=== PATIENT | male | born 1980 | race Caucasian/White ===

== ENCOUNTER 2018-09-08 17:31 | Emergency (ER) | payer SELFPAY ==
[~2018-09-08] VITALS: Ht 175.3 cm; Wt 109.1 kg
[2018-09-08 17:56] VITALS: Ht 175.3 cm; Wt 109.1 kg
[2018-09-08] MEDS ORDERED: LEVAQUIN750 MG PO (19:34)
[2018-09-08] MEDS ORDERED: MEDROL DOSE PACK4 MG PO (19:34)
[2018-09-08] MEDS ORDERED: PHENERGAN DM SYR5 ML PO (19:34)
[2018-09-08] MEDS ORDERED: TAMIFLU75 MG PO (19:34)
[2018-09-08 20:38] VITALS: BP 130/76
[2018-09-15 17:08] LABS: AEROBE ID Final report (())
== END 2018-09-08 20:38 | disposition home or self-care (01) ==
LOC: D.ER 17:31
PROVIDERS: Family Medicine
DX: J06.9 Acute upper respiratory infection, unspecified (principal); Z20.89 Contact with and (suspected) exposure to other communicable diseases; J18.9 Pneumonia, unspecified organism; R09.89 Other specified symptoms and signs involving the circulatory and respiratory systems

== ENCOUNTER 2019-02-10 20:12 | Emergency (ER) | payer BC ==
[~2019-02-10] VITALS: Ht 175.3 cm; Wt 167.8 kg
[~2019-02-10 20:12] MED LIST: LEVAQUIN750 MG PO; MEDROL DOSE PACK4 MG PO; PHENERGAN DM SYR5 ML PO; TAMIFLU75 MG PO
[2019-02-10 20:25] VITALS: Ht 175.3 cm; Wt 167.8 kg
[2019-02-10 20:51] LABS: BASOPHILS 0.7 % (0-2); EOSINOPHILS 3.6 % (0-7); HEMATOCRIT 44.6 % (42.0-54.0); IMMATURE GRANULOCYTES 0.5 % (0-5); LYMPHOCYTES 45.8 % (15-50); MCH 30.2 pg (26.0-34.0); MCHC 33.6 g/dL (31.0-37.0); MCV 89.9 fL (80.0-100.0); MEAN PLATELET VOLUME 9.3 fL (7.4-10.4); MONOCYTES 5.9 % (2-11); NEUTROPHILS 43.5 % (40-80); PLATELET COUNT 201 10x3/uL (130-400); RBC 4.96 10x6/uL (4.20-6.10); RDW 13.1 % (11.5-14.5); WBC 8.5 10x3/uL (4.8-10.8)
[2019-02-10 20:59] LABS: APTT 25.6 SECONDS (22.8-39.4); INR 1.01 (0.85-1.17); PROTIME 12.8 SECONDS (11.6-15.0)
[2019-02-10 21:01] LABS: D-DIMER-QUANTITATIVE 0.37 ug/mLFEU (0.20-0.54)
[2019-02-10 21:08] LABS: ALBUMIN 3.6 g/dL (3.4-5.0); ALKALINE PHOSPHATASE 74 U/L (46-116); ALT (SGPT) 59 U/L (10-68); BILIRUBIN - TOTAL 0.25 mg/dL (0.2-1.3); CALC OSMOLALITY 283 mosm/kg (275-300); CALCIUM 9.3 mg/dL (8.5-10.1); CARBON DIOXIDE 31.6 mmol/L (21.0-32.0); CHLORIDE - SERUM 103 mmol/L (98-107); CREATININE - SERUM 1.2 mg/dL (0.6-1.3); GLUCOSE 135 mg/dL (74-106); POTASSIUM - SERUM 4.5 mmol/L (3.5-5.1); PROTEIN - SERUM 7.1 g/dL (6.4-8.2); SODIUM 142 mmol/L (136-145); UREA NITROGEN 9 mg/dL (7-18); eGFR NON AFRICAN AMERICAN 73 mL/min (90-120)
[2019-02-10 21:34] LABS: CKMB 3.2 U/L (0.0-3.6); CREATINE KINASE 323 UL (21-232); PRO BNP 8 pg/mL (0-125); TROPONIN-I < 0.017 ng/mL (0.000-0.060)
[2019-02-10] MEDS ORDERED: PROMETHAZINE W473 ML PO (23:27)
[2019-02-10] MEDS ORDERED: OMNICEF300 MG PO (23:27)
[2019-02-10] MEDS ORDERED: FLUTICASONE PRO16 GM NASAL (23:27)
[2019-02-10 23:41] VITALS: BP 136/98
== END 2019-02-10 23:42 | disposition home or self-care (01) ==
LOC: D.ER 20:12
PROVIDERS: Family Medicine
DX: J01.90 Acute sinusitis, unspecified (principal); J42 Unspecified chronic bronchitis